=== PATIENT | male | born 1975 | race Two or more races ===

== ENCOUNTER 2019-02-14 12:16 | Observation (INO) | payer OTHER ==
--- NOTE | 2019-02-14 12:36 | EDPHY ---
H & P Stated Complaint: bump on L buttock Time Seen by Provider: 02/14/19 12:35 - Personal History Current Tetanus/Diphtheria Vaccine: No Current Tetanus Diphtheria and Acellular Pertussis (TDAP): No - Medical/Surgical History Hx Asthma: No Hx Chronic Respiratory Disease: No Hx Diabetes: Yes Hx Cardiac Disease: No Hx Renal Disease: No Hx Cirrhosis: No Hx Alcoholism: No Hx HIV/AIDS: No Hx Splenectomy or Spleen Trauma: No Other PMH: DM, HTN, hyperlipidemia - Social History Smoking Status: Current every day smoker Constitutional: Initial Vital Signs Temperature (C) 37.2 C 02/14/19 12:22 Heart Rate 123 H 02/14/19 12:22 Respiratory Rate 16 02/14/19 12:22 Blood Pressure 144/111 H 02/14/19 12:22 O2 Sat (%) 95 02/14/19 12:22 O2 Delivery Mode Room Air Allergies/Adverse Reactions: No Known Allergies Allergy (Verified 02/14/19 13:36) Home Medications: Medication Instructions Recorded Cholesterol Medication 02/14/19 Hypertenstion Medication 02/14/19 Metformin HCl 02/14/19 glipiZIDE 02/14/19 Medical Decision Making ED Course/Re-evaluation: CHIEF COMPLAINT: Lump on left buttock HISTORY OF PRESENT ILLNESS: The patient is a 43 y/o male with a history of diabetes and hypertension complaining of a lump under his inner left buttock. As he is diabetic he became concerned and decided to present to the emergency department. Last PO was at 06: 00 (food), 7 hours ago, and 09:00 (soda). No fever, headache, body aches, lightheadedness, chest pain, heart palpitations, shortness of breath, cough, abdominal pain, urinary or bowel complaints, numbness, paresthesias. A director talent acquisition was used to communicate with the patient. REVIEW OF SYSTEMS: A comprehensive 10 system review of systems is otherwise negative aside from elements mentioned in the history of present illness and medical decision making. PHYSICAL EXAM: HR, BP, O2 Sat, RR. Temp noted General Appearance: Alert, well hydrated, appropriate, and non-toxic appearing. Head: Atraumatic without scalp tenderness or obvious injury Eyes: Pupils equal, round, reactive to light and accommodation, EOMI, no trauma , no injection. Ears: Clear bilaterally, no perforation, normal landmarks Nose: Atraumatic, no rhinorrhea, clear. Throat: There is no erythema or exudates, no lesions, normal tonsils, mucus membranes moist. Neck: Supple, 2+ carotid upstroke, nontender, no lymphadenopathy. Respiratory: No retractions, no distress, no wheezes, and no accessory muscle use. Lungs are clear to auscultation bilaterally. Cardiovascular: Regular rate and rhythm, no murmurs, rubs, or gallops. Bilateral carotid, radial, dorsalis pedis, and posterior tibial pulses intact. Good capillary refill all extremities. Gastrointestinal: Abdomen is soft, nontender, non-distended, no masses, no rebound, no guarding, no peritoneal signs. : Large left-sided pilonidal cyst. Musculoskeletal: Normal active ROM of all extremities, atraumatic. Neurological: Alert, appropriate, and interactive. The patient has normal DTRs and non-focal cranial nerves, motor, sensory, and cerebellar exam. Skin: No rashes, good turgor, no nodules on palpation. lPast medical history: Diabetes, hypertension, hyperlipidemia Past surgical history: Denies Family history: Denies Social history: Lives in [place], , employed DIAGNOSTICS/PROCEDURES/CRITICAL CARE TIME: Not indicated. DIFFERENTIAL DIAGNOSIS: The differential diagnosis includes but is not limited to pilonidal cyst, abscess, cellulitis sepsis. MEDICAL DECISION MAKING: he patient is a 43 y/o male with a history of diabetes and hypertension presenting with a lump under his inner left buttock. Last PO was at 06:00 (food) , 7 hours ago, and 09:00 (soda). On exam he has a large left-sided pilonidal cyst. I will page surgery to consult. Labs ordered; 1L IV NS and 2gm IV Cefoxitin administered. I have also discussed plan for admission and probable surgery, which the patient is comfortable with. 1310: I consulted with Dr. Sheets, general surgeon, he agrees to consult and admit this patient. - Data Points Laboratory Results: 02/14/19 13:18 POC Hgb 16.3 gm/dL gm/dL (13.7-17.5) POC Hct 48 % % (40-51) POC Sodium 141 mEq/L mEq/L (135-145) POC Potassium 4.6 mEq/L mEq/L (3.3-5.0) POC Chloride 109 mEq/L mEq/L (97-110) POC Total CO2 21 mEq/L L mEq/L (22-31) POC BUN 20 mg/dL mg/dL (7-23) POC Creatinine 0.6 mg/dL L mg/dL (0.7-1.3) POC Glucose 182 mg/dL H mg/dL (70-100) Medications Given: Discontinued Medications Sodium Chloride (Ns) 1,000 mls @ 0 mls/hr IV EDNOW ONE; Wide Open PRN Reason: Protocol Stop: 02/14/19 13:02 Last Admin: 02/14/19 13:19 Dose: 1,000 mls Cefoxitin Sodium 2 gm/ Sodium (Chloride) 100 mls @ 200 mls/hr IV EDNOW ONE PRN Reason: Protocol Stop: 02/14/19 13:31 Last Admin: 02/14/19 13:20 Dose: 100 mls Point of Care Test Results: Chemistry 02/14/19 13:18 POC Sodium 141 mEq/L mEq/L (135-145) POC Potassium 4.6 mEq/L mEq/L (3.3-5.0) POC Chloride 109 mEq/L mEq/L (97-110) POC Total CO2 21 mEq/L L mEq/L (22-31) POC BUN 20 mg/dL mg/dL (7-23) POC Creatinine 0.6 mg/dL L mg/dL (0.7-1.3) POC Glucose 182 mg/dL H mg/dL (70-100) ISTAT H&H 02/14/19 13:18 POC Hgb 16.3 gm/dL gm/dL (13.7-17.5) POC Hct 48 % % (40-51) Departure - Departure Disposition: [facility] Inpatient Acute Clinical Impression: Pilonidal cyst Condition: Fair Referrals: NONE *PRIMARY CARE P,. [Primary Care Provider] - As per Instructions Report Scribed for: Marlon Mahoney Report Scribed by: Naina Rosenberg Date of Report: 02/14/19 Time of Report: 13:06
[2019-02-14] MEDS ORDERED: NS 1,000 ML IV ONE (13:01)
[2019-02-14] MEDS ORDERED: cefOXitin SODIUM 2 GM in NS 100 ML IV ONE ×2 (13:02→18:15)
[2019-02-14] MEDS ORDERED: cefTRIAXone 1 GM/DEXTROSE 1 GM/50 ML BAG IV ONE (13:17)
[2019-02-14 14:49] LABS: PLATELET COUNT 217 10^3/uL (150-400)
[2019-02-14 14:57] LABS: INR 0.99 (0.83-1.16); PROTIME(PATIENT) 12.7 SEC (12.0-15.0)
[2019-02-14] MEDS ORDERED: ONDANSETRON 4 MG/2 ML VIAL IVP PRN ×2 (15:29→18:37)
[2019-02-14] MEDS ORDERED: NS W/ 20 KCl/L 1,000 ML IV SCH (15:30)
[2019-02-14] MEDS: HYDROmorphONE/DILAUDID 1 MG/ML INJ IVP PRN ×2 (16:23→17:48)
[2019-02-14] MEDS ORDERED: HYDROGEN PEROXIDE 236 ML BOTTLE TP ONE (17:33)
[2019-02-14] MEDS ORDERED: METHYLENE BLUE 0.5% 50 MG/10 ML AMP ONE (17:33)
[2019-02-14] MEDS ORDERED: BUPIVACAINE/EPI 0.5% 30 ML SDV ONE (17:33)
[2019-02-14] MEDS ORDERED: HYDROmorphONE/DILAUDID 1 MG/ML INJ ONE (17:47)
--- NOTE | 2019-02-14 17:49 | PDANEPAE ---
ANE History of Present Illness 43 yo i &d pilonidal cyst ANE Past Medical History - Cardiovascular History Hx Hypertension: Yes Hx Arrhythmias: No Hx Chest Pain: No Hx Coronary Artery / Peripheral Vascular Disease: No Hx CHF / Valvular Disease: No Hx Palpitations: No - Pulmonary History Hx Oxygen in Use at Home: No Hx Sleep Apnea: No - Endocrine History Hx Diabetes: Yes ANE Review of Systems Review of Systems: - Exercise capacity METS (RN): 4 METS ANE Patient History - Allergies Allergies/Adverse Reactions: No Known Allergies Allergy (Verified 02/14/19 13:36) - Home Medications Home medications: home medication list seen and reviewed Home Medications: Lisinopril [Zestril 20 mg (*)] 20 mg PO DAILY 02/14/19 [Last Taken Unknown] Lovastatin [Altoprev] 20 mg PO HS 02/14/19 [Last Taken Unknown] Sildenafil Citrate [Viagra] 100 mg PO DAILY PRN 02/14/19 [Last Taken Unknown] glipiZIDE [Glipizide] 5 mg PO BID 02/14/19 [Last Taken Unknown] metFORMIN HCL [Glucophage 1000 mg] 1,000 mg PO BIDMEAL 02/14/19 [Last Taken 18:00] - NPO status NPO Status: no food or drink >8 hours - Anes Hx Anes Hx: no prior problems - Smoking Hx Smoking Status: Current every day smoker ANE Labs/Vital Signs - Labs Result Diagrams: 02/14/19 14:31 02/14/19 14:31 - Vital Signs Blood Pressure: 135/75 Heart Rate: 86 Respiratory Rate: 16 O2 Sat (%): 94 Height: 5 ft 7 in Weight: 98.43 kg ANE Physical Exam - Airway Neck exam: FROM Mallampati Score: Class 2 Mouth exam: normal dental/mouth exam - Pulmonary Pulmonary: no respiratory distress - Cardiovascular Cardiovascular: regular rate and rhythym - ASA Status ASA Status: II ANE Anesthesia Plan Anesthesia Plan: general endotracheal anesthesia
[2019-02-14] MEDS ORDERED: MIDAZOLAM 2 MG/2 ML VIAL IVP ONE (17:50)
[2019-02-14] MEDS ORDERED: ROCURONIUM 100 MG/10 ML VIAL ONE (17:59)
[2019-02-14] MEDS ORDERED: PROPOFOL/EMULSION 500 MG/50 ML BOTTLE IV ONE (17:59)
[2019-02-14] MEDS ORDERED: fentaNYL 100 MCG/2 ML INJ ONE (17:59)
[2019-02-14] MEDS ORDERED: ONDANSETRON 4 MG/2 ML VIAL ONE (18:00)
[2019-02-14] MEDS ORDERED: REMIFENTANIL HCL 1 MG VIAL ONE (18:02)
--- NOTE | 2019-02-14 18:06 | PDGENHP ---
History & Physical Chief Complaint: buttock pain History of Present Illness: male with 2 days of buttock pain and presents with fluctuant pilonidal abscess. admit for drainage/ risks and options fully discussed Pertinent Past, Social, Family History: psh: denies. pmh: htn, dm, hyperlipemia. ros - 10 pt review. soc hx: smoker, works in [place], lives in [place]/ . NKA. meds: lisinopril, metformin, zocor. fam hx: noncontributory Relevant Physical Exam: gen: healthy 43 male in no acute distress, afebrile. heent nonicteric, perrla, no adenopathy. neck full rom, nontender. chest clear and symmetric. cor: rr. abd: soft, nontender. gen: wnl. rectal: tender fluctuant mass in pilonidal area. extrem: full pulses, full rom. neuro symmetric and physiologic Cardiorespiratory Assessment: imp: infected pilonidalcyst. PLan: I&D. risks and options fully discussed
[2019-02-14] MEDS ORDERED: ePHEDrine SULFATE 25 MG/5 ML SYR ONE (18:29)
[2019-02-14] MEDS ORDERED: SUGAMMADEX SODIUM 200 MG/2 ML VIAL IVP ONE (18:34)
[2019-02-14] MEDS ORDERED: HYDROmorphONE/DILAUDID 1 MG/ML INJ IVP PRN (18:37)
[2019-02-14] MEDS ORDERED: NALOXONE HCL 0.4 MG/ML INJ IVP PRN (18:37)
[2019-02-14] MEDS ORDERED: fentaNYL 100 MCG/2 ML INJ IVP PRN (18:37)
--- NOTE | 2019-02-14 18:42 | POSTOPPROG ---
Post Op Note Date of Operation: 02/14/19 Surgeon: Kamron Sheets Anesthesiologist: tristan Anesthesia: GET(General Endotracheal) Pre-op Diagnosis: pilonidal abscess Post-op Diagnosis: same Indication: infection Procedure: i%d infected pilonidal abscess Findings: 30 cc purulence Inf/Abcess present in the surg proc area at time of surgery?: Yes Depth: Deep Incisional (Fascial) EBL: Minimal Complications: 0 Specimen(s): culture
--- NOTE | 2019-02-14 20:16 | GOP ---
[f rep st] OPERATIVE REPORT DATE OF OPERATION: 02/14/2019 SURGEON: Kamron Sheets MD ANESTHESIA: Dr. Sanchez. PREOPERATIVE DIAGNOSIS: Infected pilonidal cyst. POSTOPERATIVE DIAGNOSIS: Infected pilonidal cyst. PROCEDURE PERFORMED: I and D of an infected pilonidal cyst. FINDINGS: The patient was found to have 30 cc of pure pus in this midline fluctuant area in the lowe r gluteal fold. There was no obvious pilonidal sinus tract, and no obvious connection to the rectum, which was quite a ways away. DESCRIPTION OF PROCEDURE: The patient was taken to the operating room where he received a satisfacto ry general endotracheal anesthesia by Dr. Sanchez, placed in the prone nyasia-knife position, prepped and draped in the usual sterile fashion. Needle aspiration was done with a fluctuant area and pure p us was achieved. This was sent for culture. A vertical I and D was made of this area relieving a la rge amount of purulent material which was suctioned clear. The wound was irrigated and then infiltra josey with 0.5% Marcaine and then packed with iodoform gauze. He tolerated the procedure well. There were no complications. He was taken to the recovery room in good condition. /[id number]/MODL
[2019-02-14 20:24] VITALS: BP 118/64
--- NOTE | 2019-02-17 08:44 | POSTANESTH ---
Post Anesthetic Evaluation Cardiovascular Status: Normal, Stable Respiratory Status: Normal, Stable Level of Consciousness/Mental Status: Can Participate in Eval Pain Control: Adequate, Prn Tx Ordered Nausea/Vomiting Control: Adequate, Prn Tx Ordered Complications Possibly Related to Anesthesia: None Noted
== END 2019-02-14 21:43 | disposition home or self-care (01) ==
LOC: F3E 15:05
PROVIDERS: ADMIT Surgery; ATTEND Surgery
PROC: 0J990ZZ Drainage of Buttock Subcutaneous Tissue and Fascia, Open Approach (ICD-10-PCS; principal; 2019-02-14 17:30)
DX: L05.01 Pilonidal cyst with abscess (principal); E11.9 Type 2 diabetes mellitus without complications; I10 Essential (primary) hypertension; E78.5 Hyperlipidemia, unspecified; F17.210 Nicotine dependence, cigarettes, uncomplicated
CPT/HCPCS: 82435-PO; 82565-PO; 82947-PO; 84132-PO; 84295-PO; 84520-PO; 85014-ER; J0694; J0696; J1170; J2250; J2405; J2704; J3010; Q9968